=== PATIENT | female | born 1985 | race Caucasian/White ===

== ENCOUNTER 2016-05-27 19:41 | Emergency (ER) | payer MEDICAID ==
[2016-05-27] MEDS ORDERED: AUGMENTIN 875 MG TAB As Ordered ONE (20:54)
[2016-05-27] MEDS ORDERED: METOCLOPRAMIDE INJ 10MG/2ML VIAL (J2765) As Ordered ONE (20:54)
[2016-05-27] MEDS ORDERED: KETOROLAC 30 MG/ML VIAL (J1885) As Ordered ONE (20:55)
[2016-05-27] MEDS ORDERED: diphenhydrAMINE INJ 50MG/ML VIAL (J1200) As Ordered ONE (20:55)
[2016-05-27] MEDS ORDERED: ONDANSETRON 4 MG ORAL DISINTEGRATING TAB (S0181) As Ordered ONE (22:26)
--- NOTE | 2016-05-27 22:37 | EDDOCDS ---
Physician Documentation [facility] Name: Hortencia Trevino Age: 30 yrs Sex: Female : 1985 Arrival Date: 05/27/2016 Time: 19:41 Bed I5 / M5 Private MD: Mikey Sexton A. Disposition: 05/27/16 22:21 Discharged to Home/Self Care. Impression: Headache, Acute maxillary sinusitis. - Condition is Stable. - Discharge Instructions: Sinusitis, Adult. - Prescriptions for Augmentin 875- 125 mg Oral Tablet - take 1 tablet by ORAL route every 12 hours for 10 days; 20 tablet. Fluticasone 50 mcg/actuation Nasal [place], Suspension - inhale 2 spray by INTRANASAL route once daily; 1 bottle. - Medication Reconciliation, Local Pharmacy Hours form. - Follow up: Emergency Department; When: As needed. Follow up: Mikey Sexton; When: Call to arrange an appointment; Reason: Wound/Symptom Recheck, Recheck today's complaints, Worsening of conditions, Continuance of care. - Problem is an ongoing problem. - Symptoms have improved. Historical: - Allergies: Imitrex; Biaxin; SULFA (SULFONAMIDES); decongestants; snapple drinks; - Home Meds: 1. BCP 1 tab once daily 2. albuterol sulfate 90 mcg/actuation Inhl HFAA 2 puffs as needed 3. Tylenol 500mg Oral 1 tab as needed (Last dose: 05/27/2016 04:30) 4. Motrin 800 mg Oral tab as needed (Last dose: 05/27/2016 15:45) - PMHx: Asthma; Migraines; Heart Murmur; - PSHx: Tonsillectomy; Adenoidectomy; Laparoscopy; - Social history: Smoking status: Patient states was never smoker of tobacco. No barriers to communication noted, The patient speaks fluent Gabonese. - Family history: Not pertinent. - : The pt / caregiver states he / she is not on anticoagulants. Home medication list is obtained from the patient. - Exposure Risk Screening:: None identified. 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 10 in. (147.32 cm); Pain 7/10; 22:27 BP 118 / 66; Pulse 91; Resp 18; Temp 98.4; Pulse Ox 100% ; Pain 4/10; ms18 19:42 Body Mass Index 31.35 (68.04 kg, 147.32 cm) sew MDM: 20:45 IV Saline Lock ordered. cc10 20:45 NS 0.9% 1000 ml IV at bolus once ordered. cc10 20:45 ketorolac 30 mg IVP once ordered. cc10 20:45 diphenhydrAMINE 25 mg IVP once ordered. cc10 20:45 Metoclopramide 10 mg IV at 40 mg/hr once over 15 mins ordered. cc10 20:45 Amoxicillin-Clavulanate 875 mg 1 tabs PO once ordered. cc10 20:45 UCG by Nursing ordered. cc10 21:30 [facility] Payment Agreement was scanned into [employer] and attached to record. jp5 21:30 Financial registration complete. jp5 22:21 Ondansetron ODT Oral Disintegrating Tablet 4 mg PO once ordered. cc10 Point of Care Testing: Urine : 21:01 hCG Reading: Negative; Control Reading: Positive; ld5 Ranges: Administered Medications: 21:08 Drug: NS 0.9% 1000 ml [sodium chloride 0.9 % intravenous solution] Route: IV; Rate: ms18 bolus; Site: left antecubital; 21:08 Drug: ketorolac 30 mg [ketorolac 30 mg/mL (1 mL) injection solution (1 mL)] Route: IVP; ms18 Site: left antecubital; 21:08 Drug: Amoxicillin-Clavulanate 1 tabs [amoxicillin 875 mg-potassium clavulanate 125 mg ms18 tablet (1 tabs)] Route: PO; 21:09 Drug: diphenhydrAMINE 25 mg [diphenhydramine 50 mg/mL injection solution (0.5 mL)] ms18 Route: IVP; Site: left antecubital; 21:09 Drug: Metoclopramide 10 mg [metoclopramide 5 mg/mL injection solution] Route: IV; Rate: ms18 40 mg/hr; Infused Over: 15 mins; Site: left antecubital; 22:37 Follow up: IV Status: Completed infusion ms18 Signatures: Veronica Vega RN RN [facility] Jatinder Kelly PA-C PAOdalys cc10 Angelica Spaulding RN RN ms18 Aditi Tovar jp5 The chart was reviewed and I authenticate all verbal orders and agree with the evaluation and treatment provided.Attachments: 21:30 [facility] Payment Agreement jp5 MTDD
--- NOTE | 2016-05-27 22:37 | EDDOCDS ---
Nurse's Notes [facility] Name: Hortencia Trevino Age: 30 yrs Sex: Female : 1985 Arrival Date: 05/27/2016 Time: 19:41 Bed I5 / M5 Private MD: Mikey Sexton A. Diagnosis: Headache;Acute maxillary sinusitis Presentation: 05/27 19:46 Presenting complaint: Patient states: Headache since yesterday morning, hurts to move, mcp lights and loud noises increase headache. This patient has no additional risk factors. Adult Sepsis Screening: The patient does not have new or worsening altered mentation. Patient's respiratory rate is less than 22. Systolic blood pressure is greater than 100. Patient has a qSOFA score of 0- Negative Sepsis Screen. Suicide/Homicide risk assessment- the patient denies having any suicidal and/or homicidal ideations and does not present with any other emotional, behavioral or mental health complaints. Status: Patient is not a career services representative or dependent. Transition of care: patient was not received from another setting of care. 19:46 Acuity: ERIN Level 4 [facility] 19:46 Method Of Arrival: Walkin/Carried/Asstd [facility] Triage Assessment: 19:51 Headache History: This headache is more severe than any previous headaches the patient [facility] has experienced. General: Appears uncomfortable, Behavior is cooperative. Pain: Location: head Pain currently is 8 out of 10 on a pain scale. Pain began 1 day ago Also complains of photophobia, inability to perform activities of daily living. HIV screening NA for this visit Offered previously. Neurological: Level of Consciousness is awake, alert, Oriented to person, place, time, Moves all extremities. Gait is steady, Speech is normal, Reports headache. Respiratory: Airway is patent Respiratory effort is even, unlabored. Derm: Skin is pink, warm & dry. 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 BCP 1 tab once daily 2. albuterol sulfate 90 mcg/actuation Inhl HFAA 2 puffs as needed 3. Tylenol 500mg Oral 1 tab as needed (Last dose: 05/27/2016 04:30) 4. Motrin 800 mg Oral tab as needed (Last dose: 05/27/2016 15:45) - PMHx: Asthma; Migraines; Heart Murmur; - PSHx: Tonsillectomy; Adenoidectomy; Laparoscopy; - Social history: Smoking status: Patient states was never smoker of tobacco. No barriers to communication noted, The patient speaks fluent Luxembourger. - Family history: Not pertinent. - : The pt / caregiver states he / she is not on anticoagulants. Home medication list is obtained from the patient. - Exposure Risk Screening:: None identified. Screenin:01 Screening information is obtained from the patient. Fall risk: No risks identified. ld5 Assistance ADL's: requires no assistance with activities of daily living. Abuse/DV Screen: The patient / caregiver reports he/she is: not in a situation that causes fear, pain or injury. Nutritional screening: No deficits noted. Advance Directives: There is no active DNR order. home support is adequate. Assessment: 21:01 General: Appears in no apparent distress, Behavior is cooperative. Pain: Location: ld5 occipital area and base of the skull Pain currently is 7 out of 10 on a pain scale. Pain does not radiate. Quality of pain is described as pressure, sharp, Pain began 1 day ago Is continuous. Neurological: Level of Consciousness is awake, obeys commands. Respiratory: Airway is patent Respiratory effort is even, unlabored. GI: Abdomen is non- distended Denies nausea, vomiting. 22:27 General: Appears in no apparent distress, comfortable, Behavior is appropriate for age, ms18 cooperative. Pain: Location: occipital area Pain currently is 4 out of 10 on a pain scale. Also complains of no other associated symptoms. Neurological: Level of Consciousness is awake, alert, obeys commands, Oriented to person, place, time. Respiratory: No deficits noted. Derm: Skin is pink, warm & dry. Vital Signs: 19:42 BP 137 / 70; Pulse 94; Resp 16; Temp 97.3(T); Pulse Ox 98% on R/A; Weight 68.04 kg; sew Height 4 ft. 10 in. (147.32 cm); Pain 7/10; 22:27 BP 118 / 66; Pulse 91; Resp 18; Temp 98.4; Pulse Ox 100% ; Pain 4/10; ms18 19:42 Body Mass Index 31.35 (68.04 kg, 147.32 cm) sew Vitals: 19:42 Log In Time: May 27, 2016 at 19:40. sew ED Course: 19:41 Patient visited by Jocelyn Tanner. sew 19:41 Patient moved to Waiting sew 19:42 Mikey Sexton is Private Physician. sew 19:43 Patient visited by Jocelyn Tanner. sew 19:43 Patient moved to Pre RCE sew 19:47 Triage Initiated mcp 19:52 Patient visited by Veronica Vega RN. mcp 20:24 Patient moved to Triage 1 cz 20:36 Jatinder Kelly PA-C is PHCP. cc10 20:36 Kishor Patel DO is Attending Physician. cc10 20:36 Patient visited by Jatinder Kelly PA-C. cc10 20:36 Patient visited by Jatinder Kelly PA-C. cc10 20:45 Patient moved to I5 / M5 jb5 21:01 The patient / caregiver is instructed regarding the plan of care and ED course. Patient ld5 has correct armband on for positive identification. Placed in gown. Bed in low position. Call light in reach. 21:01 Inserted saline lock: 20 gauge in left antecubital area The patient tolerated the ld5 procedure well. 21:02 Patient visited by Jasmin Bartlett,GIORGIO. ld5 21:08 Patient visited by Angelica Spaulding,GIORGIO. ms18 21:30 [facility] Payment Agreement was scanned into [employer] and attached to record. jp5 21:53 Patient visited by Aurea Perry LPN. cp1 22:00 Patient visited by Aurea Perry LPN. cp1 22:15 Patient visited by Aurea Perry LPN. cp1 22:21 Mikey Sexton is Referral Physician. cc10 22:27 Property sent home with patient. :Personal belongings accompany Pt. ms18 22:27 Discontinued IV lock intact, bleeding controlled, pressure dressing applied, No ms18 redness/swelling at site. No procedures done that require assistance. Administered Medications: 21:08 Drug: NS 0.9% 1000 ml [sodium chloride 0.9 % intravenous solution] Route: IV; Rate: ms18 bolus; Site: left antecubital; 21:08 Drug: ketorolac 30 mg [ketorolac 30 mg/mL (1 mL) injection solution (1 mL)] Route: IVP; ms18 Site: left antecubital; 21:08 Drug: Amoxicillin-Clavulanate 1 tabs [amoxicillin 875 mg-potassium clavulanate 125 mg ms18 tablet (1 tabs)] Route: PO; 21:09 Drug: diphenhydrAMINE 25 mg [diphenhydramine 50 mg/mL injection solution (0.5 mL)] ms18 Route: IVP; Site: left antecubital; 21:09 Drug: Metoclopramide 10 mg [metoclopramide 5 mg/mL injection solution] Route: IV; Rate: ms18 40 mg/hr; Infused Over: 15 mins; Site: left antecubital; 22:37 Follow up: IV Status: Completed infusion ms18 Point of Care Testing: Urine : 21:01 hCG Reading: Negative; Control Reading: Positive; ld5 Ranges: Order Results: There are currently no results for this order. Outcome: 22:21 Discharge ordered by Provider. cc10 22:27 Discharge Assessment: Patient awake, alert and oriented x 3. No cognitive and/or ms18 functional deficits noted. Patient verbalized understanding of disposition instructions. patient administered narcotics - no. The following High Risk Discharge criteria are identified: None. Discharged to home ambulatory. Condition: good Condition: stable Condition: improved. Discharge instructions given to patient, Instructed on discharge instructions, follow up and referral plans. medication usage, Demonstrated understanding of instructions, medications, Pt was receptive of discharge instructions/ teaching. Prescriptions given X 2. No special radiology studies were completed. 22:36 Patient left the ED. ms18 Signatures: Veronica Vega RN RN mcp Zecher, Calvin, RN Alma Pierre, SHAREBROKER SHAREBROKER jb5 Aurea Perry,BASKET GRADER BASKET GRADER cp1 Jasmin Bartlett RN RN israel5 Jocelyn Tanner Colin, PA-C PA-C cc10 Angelica Spaulding RN RN ms18 Aditi Tovar jp5 MTDD
--- NOTE | 2016-05-31 10:07 | EDDOCDS ---
Physician Documentation [facility] Name: Hortecnia Trevino Age: 30 yrs Sex: Female : 1985 Arrival Date: 05/27/2016 Time: 19:41 Bed I5 / M5 Private MD: Mikey Sexton A. Disposition: 05/27/16 22:21 Discharged to Home/Self Care. Impression: Headache, Acute maxillary sinusitis. - Condition is Stable. - Discharge Instructions: Sinusitis, Adult. - Prescriptions for Augmentin 875- 125 mg Oral Tablet - take 1 tablet by ORAL route every 12 hours for 10 days; 20 tablet. Fluticasone 50 mcg/actuation Nasal [place], Suspension - inhale 2 spray by INTRANASAL route once daily; 1 bottle. - Medication Reconciliation, Local Pharmacy Hours form. - Follow up: Emergency Department; When: As needed. Follow up: Mikey Sexton; When: Call to arrange an appointment; Reason: Wound/Symptom Recheck, Recheck today's complaints, Worsening of conditions, Continuance of care. - Problem is an ongoing problem. - Symptoms have improved. Historical: - Allergies: Imitrex; Biaxin; SULFA (SULFONAMIDES); decongestants; snapple drinks; - Home Meds: 1. BCP 1 tab once daily 2. albuterol sulfate 90 mcg/actuation Inhl HFAA 2 puffs as needed 3. Tylenol 500mg Oral 1 tab as needed (Last dose: 05/27/2016 04:30) 4. Motrin 800 mg Oral tab as needed (Last dose: 05/27/2016 15:45) - PMHx: Asthma; Migraines; Heart Murmur; - PSHx: Tonsillectomy; Adenoidectomy; Laparoscopy; - Social history: Smoking status: Patient states was never smoker of tobacco. No barriers to communication noted, The patient speaks fluent Sudanese. - Family history: Not pertinent. - : The pt / caregiver states he / she is not on anticoagulants. Home medication list is obtained from the patient. - Exposure Risk Screening:: None identified. 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 10 in. (147.32 cm); Pain 7/10; 22:27 BP 118 / 66; Pulse 91; Resp 18; Temp 98.4; Pulse Ox 100% ; Pain 4/10; ms18 19:42 Body Mass Index 31.35 (68.04 kg, 147.32 cm) sew MDM: 20:45 IV Saline Lock ordered. cc10 20:45 NS 0.9% 1000 ml IV at bolus once ordered. cc10 20:45 ketorolac 30 mg IVP once ordered. cc10 20:45 diphenhydrAMINE 25 mg IVP once ordered. cc10 20:45 Metoclopramide 10 mg IV at 40 mg/hr once over 15 mins ordered. cc10 20:45 Amoxicillin-Clavulanate 875 mg 1 tabs PO once ordered. cc10 20:45 UCG by Nursing ordered. cc10 21:30 [facility] Payment Agreement was scanned into [employer] and attached to record. jp5 21:30 Financial registration complete. jp5 22:21 Ondansetron ODT Oral Disintegrating Tablet 4 mg PO once ordered. cc10 05/28 08:18 T-Sheet-- Draft Copy was scanned into [employer] and attached to record. [facility] Point of Care Testing: Urine : 05/27 21:01 hCG Reading: Negative; Control Reading: Positive; ld5 Ranges: Administered Medications: 21:08 Drug: NS 0.9% 1000 ml [sodium chloride 0.9 % intravenous solution] Route: IV; Rate: ms18 bolus; Site: left antecubital; 22:37 Follow up: IV Status: Completed infusion; IV Intake: 1000ml ms18 21:08 Drug: ketorolac 30 mg [ketorolac 30 mg/mL (1 mL) injection solution (1 mL)] Route: IVP; ms18 Site: left antecubital; 22:37 Follow up: Response: Pain is decreased ms18 21:08 Drug: Amoxicillin-Clavulanate 1 tabs [amoxicillin 875 mg-potassium clavulanate 125 mg ms18 tablet (1 tabs)] Route: PO; 22:38 Follow up: Response: No Adverse Reaction ms18 21:09 Drug: diphenhydrAMINE 25 mg [diphenhydramine 50 mg/mL injection solution (0.5 mL)] ms18 Route: IVP; Site: left antecubital; 22:37 Follow up: Response: No Adverse Reaction ms18 21:09 Drug: Metoclopramide 10 mg [metoclopramide 5 mg/mL injection solution] Route: IV; Rate: ms18 40 mg/hr; Infused Over: 15 mins; Site: left antecubital; 22:37 Follow up: IV Status: Completed infusion ms18 22:38 Drug: Ondansetron ODT 4 mg [ondansetron 4 mg disintegrating tablet (1 tabs)] Route: PO; ms18 22:38 Follow up: Response: Pt left department before re-evaluation is appropriate ms18 Signatures: Veronica Vega RN RN Jatinder Moran PA-C PA-C cc10 Angelica Spaulding RN RN ms18 Aditi Tovar jp5 Jocelyn Yao The chart was reviewed and I authenticate all verbal orders and agree with the evaluation and treatment provided.Attachments: 21:30 [facility] Payment Agreement jp5 05/28 08:18 T-Sheet-- Draft Copy [facility] Chart Complete MTDD
--- NOTE | 2016-05-31 10:07 | EDDOCDS ---
Nurse's Notes [facility] Name: Hortencia Trevino Age: 30 yrs Sex: Female : 1985 Arrival Date: 05/27/2016 Time: 19:41 Bed I5 / M5 Private MD: Mikey Sexton A. Diagnosis: Headache;Acute maxillary sinusitis Presentation: 05/27 19:46 Presenting complaint: Patient states: Headache since yesterday morning, hurts to move, mcp lights and loud noises increase headache. This patient has no additional risk factors. Adult Sepsis Screening: The patient does not have new or worsening altered mentation. Patient's respiratory rate is less than 22. Systolic blood pressure is greater than 100. Patient has a qSOFA score of 0- Negative Sepsis Screen. Suicide/Homicide risk assessment- the patient denies having any suicidal and/or homicidal ideations and does not present with any other emotional, behavioral or mental health complaints. Status: Patient is not a it service continuity supervisor or dependent. Transition of care: patient was not received from another setting of care. 19:46 Acuity: ERIN Level 4 [facility] 19:46 Method Of Arrival: Walkin/Carried/Asstd [facility] Triage Assessment: 19:51 Headache History: This headache is more severe than any previous headaches the patient [facility] has experienced. General: Appears uncomfortable, Behavior is cooperative. Pain: Location: head Pain currently is 8 out of 10 on a pain scale. Pain began 1 day ago Also complains of photophobia, inability to perform activities of daily living. HIV screening NA for this visit Offered previously. Neurological: Level of Consciousness is awake, alert, Oriented to person, place, time, Moves all extremities. Gait is steady, Speech is normal, Reports headache. Respiratory: Airway is patent Respiratory effort is even, unlabored. Derm: Skin is pink, warm & dry. 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 BCP 1 tab once daily 2. albuterol sulfate 90 mcg/actuation Inhl HFAA 2 puffs as needed 3. Tylenol 500mg Oral 1 tab as needed (Last dose: 05/27/2016 04:30) 4. Motrin 800 mg Oral tab as needed (Last dose: 05/27/2016 15:45) - PMHx: Asthma; Migraines; Heart Murmur; - PSHx: Tonsillectomy; Adenoidectomy; Laparoscopy; - Social history: Smoking status: Patient states was never smoker of tobacco. No barriers to communication noted, The patient speaks fluent Lithuanian. - Family history: Not pertinent. - : The pt / caregiver states he / she is not on anticoagulants. Home medication list is obtained from the patient. - Exposure Risk Screening:: None identified. Screenin:01 Screening information is obtained from the patient. Fall risk: No risks identified. ld5 Assistance ADL's: requires no assistance with activities of daily living. Abuse/DV Screen: The patient / caregiver reports he/she is: not in a situation that causes fear, pain or injury. Nutritional screening: No deficits noted. Advance Directives: There is no active DNR order. home support is adequate. Assessment: 21:01 General: Appears in no apparent distress, Behavior is cooperative. Pain: Location: ld5 occipital area and base of the skull Pain currently is 7 out of 10 on a pain scale. Pain does not radiate. Quality of pain is described as pressure, sharp, Pain began 1 day ago Is continuous. Neurological: Level of Consciousness is awake, obeys commands. Respiratory: Airway is patent Respiratory effort is even, unlabored. GI: Abdomen is non- distended Denies nausea, vomiting. 22:27 General: Appears in no apparent distress, comfortable, Behavior is appropriate for age, ms18 cooperative. Pain: Location: occipital area Pain currently is 4 out of 10 on a pain scale. Also complains of no other associated symptoms. Neurological: Level of Consciousness is awake, alert, obeys commands, Oriented to person, place, time. Respiratory: No deficits noted. Derm: Skin is pink, warm & dry. Vital Signs: 19:42 BP 137 / 70; Pulse 94; Resp 16; Temp 97.3(T); Pulse Ox 98% on R/A; Weight 68.04 kg; sew Height 4 ft. 10 in. (147.32 cm); Pain 7/10; 22:27 BP 118 / 66; Pulse 91; Resp 18; Temp 98.4; Pulse Ox 100% ; Pain 4/10; ms18 19:42 Body Mass Index 31.35 (68.04 kg, 147.32 cm) sew Vitals: 19:42 Log In Time: May 27, 2016 at 19:40. sew ED Course: 19:41 Patient visited by Jocelyn Tanner. sew 19:41 Patient moved to Waiting sew 19:42 Mikey Sexton is Private Physician. sew 19:43 Patient visited by Jocelyn Tanner. sew 19:43 Patient moved to Pre RCE sew 19:47 Triage Initiated mcp 19:52 Patient visited by Veronica Vega RN. mcp 20:24 Patient moved to Triage 1 cz 20:36 Jatinder Kelly PA-C is PHCP. cc10 20:36 Kishor Patel DO is Attending Physician. cc10 20:36 Patient visited by Jatinder Kelly PA-C. cc10 20:36 Patient visited by Jatinder Kelly PA-C. cc10 20:45 Patient moved to I5 / M5 jb5 21:01 The patient / caregiver is instructed regarding the plan of care and ED course. Patient ld5 has correct armband on for positive identification. Placed in gown. Bed in low position. Call light in reach. 21:01 Inserted saline lock: 20 gauge in left antecubital area The patient tolerated the ld5 procedure well. 21:02 Patient visited by Jasmin Bartlett,GIORGIO. ld5 21:08 Patient visited by Angelica Spaulding,GIORGIO. ms18 21:30 [facility] Payment Agreement was scanned into [employer] and attached to record. jp5 21:53 Patient visited by uArea Perry LPN. cp1 22:00 Patient visited by Aurea Perry LPN. cp1 22:15 Patient visited by Aurea Perry LPN. cp1 22:21 Mikey Sexton is Referral Physician. cc10 22:27 Property sent home with patient. :Personal belongings accompany Pt. ms18 22:27 Discontinued IV lock intact, bleeding controlled, pressure dressing applied, No ms18 redness/swelling at site. No procedures done that require assistance. 05/28 08:18 T-Sheet-- Draft Copy was scanned into [employer] and attached to record. seh Administered Medications: 05/27 21:08 Drug: NS 0.9% 1000 ml [sodium chloride 0.9 % intravenous solution] Route: IV; Rate: ms18 bolus; Site: left antecubital; 22:37 Follow up: IV Status: Completed infusion; IV Intake: 1000ml ms18 21:08 Drug: ketorolac 30 mg [ketorolac 30 mg/mL (1 mL) injection solution (1 mL)] Route: IVP; ms18 Site: left antecubital; 22:37 Follow up: Response: Pain is decreased ms18 21:08 Drug: Amoxicillin-Clavulanate 1 tabs [amoxicillin 875 mg-potassium clavulanate 125 mg ms18 tablet (1 tabs)] Route: PO; 22:38 Follow up: Response: No Adverse Reaction ms18 21:09 Drug: diphenhydrAMINE 25 mg [diphenhydramine 50 mg/mL injection solution (0.5 mL)] ms18 Route: IVP; Site: left antecubital; 22:37 Follow up: Response: No Adverse Reaction ms18 21:09 Drug: Metoclopramide 10 mg [metoclopramide 5 mg/mL injection solution] Route: IV; Rate: ms18 40 mg/hr; Infused Over: 15 mins; Site: left antecubital; 22:37 Follow up: IV Status: Completed infusion ms18 22:38 Drug: Ondansetron ODT 4 mg [ondansetron 4 mg disintegrating tablet (1 tabs)] Route: PO; ms18 22:38 Follow up: Response: Pt left department before re-evaluation is appropriate ms18 Point of Care Testing: Urine : 21:01 hCG Reading: Negative; Control Reading: Positive; ld5 Ranges: Intake: 22:37 IV: 1000.00ml; Total: 1000.00ml. ms18 Order Results: There are currently no results for this order. Outcome: 22:21 Discharge ordered by Provider. cc10 22:27 Discharge Assessment: Patient awake, alert and oriented x 3. No cognitive and/or ms18 functional deficits noted. Patient verbalized understanding of disposition instructions. patient administered narcotics - no. The following High Risk Discharge criteria are identified: None. Discharged to home ambulatory. Condition: good Condition: stable Condition: improved. Discharge instructions given to patient, Instructed on discharge instructions, follow up and referral plans. medication usage, Demonstrated understanding of instructions, medications, Pt was receptive of discharge instructions/ teaching. Prescriptions given X 2. No special radiology studies were completed. 22:36 Patient left the ED. ms18 Signatures: Veronica Vega, RN RN Lj Travis, GIORGIO RN Alma Lopez, JUAREZ ROCKET ENGINE TESTER jb5 Aurea Perry LPN LPN cp1 Jasmin Bartlett RN RN ld5 Jocelyn Tanner Colin, PA-C PA-C cc10 Angelica Spaulding RN RN ms18 Aditi Tovar jp5 Jocelyn Yao Chart Complete MTDD
--- NOTE | 2016-05-31 10:07 | EDDOCDS ---
Physician Documentation [facility] Name: Hortencia Trevino Age: 30 yrs Sex: Female : 1985 Arrival Date: 05/27/2016 Time: 19:41 Bed I5 / M5 Private MD: Mikey Sexton A. Disposition: 05/27/16 22:21 Discharged to Home/Self Care. Impression: Headache, Acute maxillary sinusitis. - Condition is Stable. - Discharge Instructions: Sinusitis, Adult. - Prescriptions for Augmentin 875- 125 mg Oral Tablet - take 1 tablet by ORAL route every 12 hours for 10 days; 20 tablet. Fluticasone 50 mcg/actuation Nasal [place], Suspension - inhale 2 spray by INTRANASAL route once daily; 1 bottle. - Medication Reconciliation, Local Pharmacy Hours form. - Follow up: Emergency Department; When: As needed. Follow up: Mikey Sexton; When: Call to arrange an appointment; Reason: Wound/Symptom Recheck, Recheck today's complaints, Worsening of conditions, Continuance of care. - Problem is an ongoing problem. - Symptoms have improved. Historical: - Allergies: Imitrex; Biaxin; SULFA (SULFONAMIDES); decongestants; snapple drinks; - Home Meds: 1. BCP 1 tab once daily 2. albuterol sulfate 90 mcg/actuation Inhl HFAA 2 puffs as needed 3. Tylenol 500mg Oral 1 tab as needed (Last dose: 05/27/2016 04:30) 4. Motrin 800 mg Oral tab as needed (Last dose: 05/27/2016 15:45) - PMHx: Asthma; Migraines; Heart Murmur; - PSHx: Tonsillectomy; Adenoidectomy; Laparoscopy; - Social history: Smoking status: Patient states was never smoker of tobacco. No barriers to communication noted, The patient speaks fluent German. - Family history: Not pertinent. - : The pt / caregiver states he / she is not on anticoagulants. Home medication list is obtained from the patient. - Exposure Risk Screening:: None identified. 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 10 in. (147.32 cm); Pain 7/10; 22:27 BP 118 / 66; Pulse 91; Resp 18; Temp 98.4; Pulse Ox 100% ; Pain 4/10; ms18 19:42 Body Mass Index 31.35 (68.04 kg, 147.32 cm) sew MDM: 20:45 IV Saline Lock ordered. cc10 20:45 NS 0.9% 1000 ml IV at bolus once ordered. cc10 20:45 ketorolac 30 mg IVP once ordered. cc10 20:45 diphenhydrAMINE 25 mg IVP once ordered. cc10 20:45 Metoclopramide 10 mg IV at 40 mg/hr once over 15 mins ordered. cc10 20:45 Amoxicillin-Clavulanate 875 mg 1 tabs PO once ordered. cc10 20:45 UCG by Nursing ordered. cc10 21:30 [facility] Payment Agreement was scanned into [employer] and attached to record. jp5 21:30 Financial registration complete. jp5 22:21 Ondansetron ODT Oral Disintegrating Tablet 4 mg PO once ordered. cc10 05/28 08:18 T-Sheet-- Draft Copy was scanned into [employer] and attached to record. [facility] Point of Care Testing: Urine : 05/27 21:01 hCG Reading: Negative; Control Reading: Positive; ld5 Ranges: Administered Medications: 21:08 Drug: NS 0.9% 1000 ml [sodium chloride 0.9 % intravenous solution] Route: IV; Rate: ms18 bolus; Site: left antecubital; 22:37 Follow up: IV Status: Completed infusion; IV Intake: 1000ml ms18 21:08 Drug: ketorolac 30 mg [ketorolac 30 mg/mL (1 mL) injection solution (1 mL)] Route: IVP; ms18 Site: left antecubital; 22:37 Follow up: Response: Pain is decreased ms18 21:08 Drug: Amoxicillin-Clavulanate 1 tabs [amoxicillin 875 mg-potassium clavulanate 125 mg ms18 tablet (1 tabs)] Route: PO; 22:38 Follow up: Response: No Adverse Reaction ms18 21:09 Drug: diphenhydrAMINE 25 mg [diphenhydramine 50 mg/mL injection solution (0.5 mL)] ms18 Route: IVP; Site: left antecubital; 22:37 Follow up: Response: No Adverse Reaction ms18 21:09 Drug: Metoclopramide 10 mg [metoclopramide 5 mg/mL injection solution] Route: IV; Rate: ms18 40 mg/hr; Infused Over: 15 mins; Site: left antecubital; 22:37 Follow up: IV Status: Completed infusion ms18 22:38 Drug: Ondansetron ODT 4 mg [ondansetron 4 mg disintegrating tablet (1 tabs)] Route: PO; ms18 22:38 Follow up: Response: Pt left department before re-evaluation is appropriate ms18 Signatures: Veronica Vega RN RN Jatinder Moran PA-C PA-C cc10 Angelica Spaulding RN RN ms18 Aditi Tovar jp5 Jocelyn Yao The chart was reviewed and I authenticate all verbal orders and agree with the evaluation and treatment provided.Attachments: 21:30 [facility] Payment Agreement jp5 05/28 08:18 T-Sheet-- Draft Copy [facility] Chart Complete MTDD
== END 2016-05-27 22:36 | disposition home or self-care (01) ==
LOC: M ED 19:41
DX: G43.909 Migraine, unspecified, not intractable, without status migrainosus (principal); J01.00 Acute maxillary sinusitis, unspecified; J45.909 Unspecified asthma, uncomplicated; R01.1 Cardiac murmur, unspecified; Z79.3 Long term (current) use of hormonal contraceptives; Z79.899 Other long term (current) drug therapy; Z88.1 Allergy status to other antibiotic agents; Z88.8 Allergy status to other drugs, medicaments and biological substances; Z88.2 Allergy status to sulfonamides; Z91.018 Allergy to other foods
CPT/HCPCS: 81025; 96365; 96375; 99283; J1200; J1885; J2765

== ENCOUNTER → 2017-01-02 | Outpatient (CLI) | payer OTHER ==
[2017-01-02 17:03] LABS: MEAN CORPUSCULAR HEMOGLOBIN 27.3 pg (27.0-33.0); MEAN CORPUSCULAR HGB CONC 32.7 g/dl (32.0-36.5); MEAN CORPUSCULAR VOLUME 83.5 fl (80.0-96.0); RED CELL DISTRIBUTION WIDTH 13.4 % (11.5-14.5); WHITE BLOOD COUNT 7.2 K/mm3 (4.0-10.0)
[2017-01-02 17:25] LABS: ALBUMIN 3.5 GM/DL (3.2-5.2); ALBUMIN/GLOBULIN RATIO 1.06 (1.00-1.93); ALKALINE PHOSPHATASE 94 U/L (45-117); ALT/SGPT 27 U/L (12-78); ANION GAP 9 MEQ/L (8-16); AST/SGOT 22 U/L (15-37); BILIRUBIN,TOTAL 0.3 MG/DL (0.2-1.0); BLOOD UREA NITROGEN 14 MG/DL (7-18); CALCIUM LEVEL 8.7 MG/DL (8.5-10.1); CARBON DIOXIDE LEVEL 24 MEQ/L (21-32); CHLORIDE LEVEL 108 MEQ/L (98-107); CREATININE FOR GFR 0.68 MG/DL (0.55-1.02); GLOMERULAR FILTRATION RATE > 60.0 (>60); GLUCOSE, FASTING 101 MG/DL (70-105); POTASSIUM SERUM 3.6 MEQ/L (3.5-5.1); SODIUM LEVEL 141 MEQ/L (136-145); TOTAL PROTEIN 6.8 GM/DL (6.4-8.2)
== END ==
LOC: M LAB 16:05
PROVIDERS: ATTEND Family Medicine
DX: Z51.81 Encounter for therapeutic drug level monitoring (principal); Z79.899 Other long term (current) drug therapy

== ENCOUNTER → 2017-05-01 | Outpatient (REF) ==
[2017-05-01 12:23] LABS: BASO # 0.1 10^3/uL (0.0-0.2); BASO % 0.7 % (0.0-1.0); EOS % 0.3 % (0.0-3.0); IMMATURE GRANULOCYTE % 0.1 % (0-0); LYMPH # 2.4 10^3/uL (1.5-4.5); LYMPH % 32.4 % (24.0-44.0); MEAN CORPUSCULAR HEMOGLOBIN 26.9 pg (27.0-33.0); MEAN CORPUSCULAR HGB CONC 32.2 g/dl (32.0-36.5); MEAN CORPUSCULAR VOLUME 83.5 fl (80.0-96.0); MONO # 0.7 10^3/uL (0.0-0.8); MONO % 9.2 % (0.0-5.0); NEUTROPHILS # 4.3 10^3/uL (1.8-7.7); NEUTROPHILS % 57.3 % (36.0-66.0); PLATELET COUNT, AUTOMATED 318 10^3/uL (150-450); RED CELL DISTRIBUTION WIDTH 13.5 % (11.5-14.5); WHITE BLOOD COUNT 7.4 10^3/uL (4.0-10.0)
[2017-05-01 13:27] LABS: ALBUMIN 4.2 GM/DL (3.2-5.2); ALKALINE PHOSPHATASE 80 U/L (45-117); ALT/SGPT 24 U/L (12-78); ANION GAP 10 MEQ/L (8-16); AST/SGOT 12 U/L (7-37); BILIRUBIN,TOTAL 0.3 MG/DL (0.2-1.0); BLOOD UREA NITROGEN 10 MG/DL (7-18); CALCIUM LEVEL 9.2 MG/DL (8.5-10.1); CARBON DIOXIDE LEVEL 25 MEQ/L (21-32); CHLORIDE LEVEL 105 MEQ/L (98-107); CREATININE FOR GFR 0.67 MG/DL (0.55-1.02); GLOMERULAR FILTRATION RATE > 60.0 (>60); GLUCOSE, FASTING 85 MG/DL (70-105); POTASSIUM SERUM 3.8 MEQ/L (3.5-5.1); SODIUM LEVEL 140 MEQ/L (136-145); TOTAL PROTEIN 7.7 GM/DL (6.4-8.2)
== END ==
LOC: M LAB 11:43
PROVIDERS: ATTEND Nurse Practitioner Adult Health
DX: Z02.9 Encounter for administrative examinations, unspecified (principal)

== ENCOUNTER → 2017-06-07 | Outpatient (CLI) | payer OTHER ==
[2017-06-07 18:24] LABS: FREE T4 0.94 NG/DL (0.76-1.46)
== END ==
LOC: M LAB 17:20
DX: E07.9 Disorder of thyroid, unspecified (principal)
CPT/HCPCS: 84443

== ENCOUNTER → 2017-08-15 | Outpatient (REF) | payer BC, OTHER ==
[2017-08-15 13:41] LABS: HCG, SERUM QUANTITATIVE < 1.0 MIU/ML
== END ==
LOC: M LAB REF 12:55
DX: Z32.02 Encounter for pregnancy test, result negative (principal)
CPT/HCPCS: 84702

== ENCOUNTER → 2017-09-05 | Outpatient (REF) | payer BC, OTHER ==
[2017-09-05 17:25] LABS: MEAN CORPUSCULAR HEMOGLOBIN 26.5 pg (27.0-33.0); MEAN CORPUSCULAR HGB CONC 31.7 g/dl (32.0-36.5); MEAN CORPUSCULAR VOLUME 83.7 fl (80.0-96.0); PLATELET COUNT, AUTOMATED 364 10^3/uL (150-450); RED CELL DISTRIBUTION WIDTH 13.6 % (11.5-14.5); WHITE BLOOD COUNT 7.8 10^3/uL (4.0-10.0)
[2017-09-05 23:06] LABS: HCG, SERUM QUANTITATIVE 117 MIU/ML
== END ==
LOC: M LAB REF 16:22
DX: O36.80X0 Pregnancy with inconclusive fetal viability, not applicable or unspecified (principal)
CPT/HCPCS: 86762

== ENCOUNTER → 2017-09-22 | Outpatient (REF) | payer BC, OTHER ==
[2017-09-22 16:41] LABS: HCG, SERUM QUANTITATIVE 2924 MIU/ML
== END ==
LOC: M LAB REF 15:26
DX: O36.80X0 Pregnancy with inconclusive fetal viability, not applicable or unspecified (principal); Z3A.00 Weeks of gestation of pregnancy not specified
CPT/HCPCS: 84702

== ENCOUNTER → 2017-10-02 | Outpatient (CLI) | payer BC, OTHER ==
[2017-10-02 13:43] LABS: HCG, SERUM QUANTITATIVE 1414 MIU/ML
== END ==
LOC: M SMT 11:03
DX: O36.80X0 Pregnancy with inconclusive fetal viability, not applicable or unspecified (principal); Z3A.00 Weeks of gestation of pregnancy not specified
CPT/HCPCS: 84702

== ENCOUNTER 2017-10-05 14:04 | Emergency (ER) | payer BC, OTHER ==
[2017-10-05] MEDS: NS 1,000 ML IV (15:15)
[2017-10-05 15:48] LABS: KETONE, URINE AUTO RFX NEGATIVE (NEGATIVE); LEUKOCYTE ESTERASE UR AUTO RFX NEGATIVE (NEGATIVE); MUCUS, URINE RFX SMALL (NEGATIVE); NITRITE, URINE AUTO RFX NEGATIVE (NEGATIVE); RBC, URINE AUTO RFX 2 /HPF (0-3); SPECIFIC GRAVITY UR AUTO RFX 1.003 (1.002-1.035); SQUAM EPITHELIAL CELL UR AURFX 1 /HPF (0-6); WBC, URINE AUTO RFX 0 /HPF (0-3)
[2017-10-05 16:10] LABS: BASO % 0.5 % (0.0-1.0); EOS % 0.2 % (0.0-3.0); HEMATOCRIT 40.5 % (36.0-47.0); HEMOGLOBIN 13.1 g/dl (12.0-15.5); IMMATURE GRANULOCYTE % 0.1 % (0-3.0); LYMPH # 2.5 10^3/uL (1.5-4.5); LYMPH % 30.2 % (24.0-44.0); MEAN CORPUSCULAR HGB CONC 32.3 g/dl (32.0-36.5); MEAN CORPUSCULAR VOLUME 83.3 fl (80.0-96.0); MONO # 0.6 10^3/uL (0.0-0.8); MONO % 7.7 % (0.0-5.0); NEUTROPHILS % 61.3 % (36.0-66.0); PLATELET COUNT, AUTOMATED 364 10^3/uL (150-450); RED BLOOD COUNT 4.86 10^6/uL (4.00-5.40); RED CELL DISTRIBUTION WIDTH 13.8 % (11.5-14.5); WHITE BLOOD COUNT 8.2 10^3/uL (4.0-10.0)
[2017-10-05 16:30] LABS: ANION GAP 7 MEQ/L (8-16); BLOOD UREA NITROGEN 6 MG/DL (7-18); CALCIUM LEVEL 9.4 MG/DL (8.5-10.1); CARBON DIOXIDE LEVEL 27 MEQ/L (21-32); CHLORIDE LEVEL 108 MEQ/L (98-107); CPK CREATINE PHOSPHOKINASE 78 U/L (26-192); CREATININE FOR GFR 0.64 MG/DL (0.55-1.30); GLOMERULAR FILTRATION RATE > 60.0 (>60); GLUCOSE, FASTING 92 MG/DL (70-100); POTASSIUM SERUM 3.6 MEQ/L (3.5-5.1); SODIUM LEVEL 142 MEQ/L (136-145); TROPONIN I < 0.02 NG/ML (< 0.10)
[2017-10-05 16:32] LABS: CK-MB VALUE MASS < 1.0 NG/ML (<3.6); HCG, SERUM QUANTITATIVE 235 MIU/ML; MB/CK RELATIVE INDEX 1.28 (< OR =4)
[2017-10-05] MEDS: MECLIZINE 25 MG TABLET PO (16:51)
== END 2017-10-05 17:47 | disposition home or self-care (01) ==
LOC: M ED 14:04
DX: Z87.59 Personal history of other complications of pregnancy, childbirth and the puerperium (principal); R42 Dizziness and giddiness; J45.909 Unspecified asthma, uncomplicated; N88.8 Other specified noninflammatory disorders of cervix uteri; Z79.899 Other long term (current) drug therapy; Z88.1 Allergy status to other antibiotic agents; Z88.2 Allergy status to sulfonamides; Z88.8 Allergy status to other drugs, medicaments and biological substances; Z91.018 Allergy to other foods
CPT/HCPCS: 76856

== ENCOUNTER → 2017-10-05 | Outpatient (REF) | payer BC, OTHER | LOC: M LAB REF 18:13 | DX: O03.4 Incomplete spontaneous abortion without complication (principal) | CPT/HCPCS: 88305 ==

== ENCOUNTER → 2017-10-09 | Outpatient (CLI) | payer BC, OTHER ==
[2017-10-09 14:25] LABS: HCG, SERUM QUANTITATIVE 30 MIU/ML
== END ==
LOC: M SMT 12:17
DX: O20.0 Threatened abortion (principal)

== ENCOUNTER → 2017-10-17 | Outpatient (CLI) | payer BC, OTHER ==
[2017-10-17 13:36] LABS: HCG, SERUM QUANTITATIVE 2 MIU/ML
== END ==
LOC: M SMT 10:14
DX: O03.4 Incomplete spontaneous abortion without complication (principal)
CPT/HCPCS: 84702

== ENCOUNTER → 2017-11-26 | Outpatient (CLI) | payer BC, OTHER | LOC: M WUC 15:45 | DX: M25.531 Pain in right wrist (principal) | CPT/HCPCS: 73110 ==

== ENCOUNTER 2017-12-07 12:28 | Emergency (ER) | payer BC, OTHER ==
[2017-12-07 13:14] LABS: KETONE, URINE AUTO RFX NEGATIVE (NEGATIVE); LEUKOCYTE ESTERASE UR AUTO RFX NEGATIVE (NEGATIVE); NITRITE, URINE AUTO RFX NEGATIVE (NEGATIVE); RBC, URINE AUTO RFX 3 /HPF (0-3); SPECIFIC GRAVITY UR AUTO RFX 1.005 (1.002-1.035); SQUAM EPITHELIAL CELL UR AURFX 0 /HPF (0-6); WBC, URINE AUTO RFX 1 /HPF (0-3)
[2017-12-07 14:19] LABS: HEMATOCRIT 37.3 % (36.0-47.0); HEMOGLOBIN 12.1 g/dl (12.0-15.5); MEAN CORPUSCULAR HGB CONC 32.4 g/dl (32.0-36.5); MEAN CORPUSCULAR VOLUME 83.3 fl (80.0-96.0); PLATELET COUNT, AUTOMATED 301 10^3/uL (150-450); RED BLOOD COUNT 4.48 10^6/uL (4.00-5.40); RED CELL DISTRIBUTION WIDTH 13.6 % (11.5-14.5); WHITE BLOOD COUNT 6.6 10^3/uL (4.0-10.0)
[2017-12-07 15:12] LABS: HCG, SERUM QUANTITATIVE 17733 MIU/ML
== END 2017-12-07 16:55 | disposition home or self-care (01) ==
LOC: M ED 12:28
DX: O20.0 Threatened abortion (principal); R82.71 Bacteriuria; Z3A.01 Less than 8 weeks gestation of pregnancy; Z88.1 Allergy status to other antibiotic agents; Z88.2 Allergy status to sulfonamides; Z88.8 Allergy status to other drugs, medicaments and biological substances; Z91.018 Allergy to other foods
CPT/HCPCS: 76801

== ENCOUNTER → 2017-12-09 | Outpatient (CLI) | payer BC, OTHER ==
[2017-12-09 13:56] LABS: HCG, SERUM QUANTITATIVE 23690 MIU/ML
== END ==
LOC: M LAB 13:01
DX: Z34.80 Encounter for supervision of other normal pregnancy, unspecified trimester (principal); Z3A.00 Weeks of gestation of pregnancy not specified
CPT/HCPCS: 84702

== ENCOUNTER → 2017-12-26 | Outpatient (CLI) | payer BC, OTHER ==
[2017-12-26 17:36] LABS: BASO # 0.1 10^3/uL (0.0-0.2); BASO % 0.8 % (0.0-1.0); EOS # 0.1 10^3/uL (0.0-0.50); EOS % 0.8 % (0.0-3.0); HEMATOCRIT 34.6 % (36.0-47.0); IMMATURE GRANULOCYTE % 0.9 % (0-3.0); LYMPH # 2.3 10^3/uL (1.5-4.5); MEAN CORPUSCULAR HEMOGLOBIN 26.9 pg (27.0-33.0); MEAN CORPUSCULAR HGB CONC 31.8 g/dl (32.0-36.5); MEAN CORPUSCULAR VOLUME 84.6 fl (80.0-96.0); MONO # 0.7 10^3/uL (0.0-0.8); MONO % 8.6 % (0.0-5.0); NEUTROPHILS # 5.2 10^3/uL (1.8-7.7); NEUTROPHILS % 61.9 % (36.0-66.0); PLATELET COUNT, AUTOMATED 430 10^3/uL (150-450); RED BLOOD COUNT 4.09 10^6/uL (4.00-5.40); RED CELL DISTRIBUTION WIDTH 13.2 % (11.5-14.5); WHITE BLOOD COUNT 8.5 10^3/uL (4.0-10.0)
[2017-12-26 22:37] LABS: CHLAMYDIA DNA AMPLIFICATION NEGATIVE (NEGATIVE); GC DNA AMPLIFICATION NEGATIVE (NEGATIVE)
[2017-12-27 08:54] LABS: RUBELLA IgG QUALITATIVE IMMUNE (IMMUNE)
[2017-12-27 09:01] LABS: HBsAg Prenatal NEGATIVE (NEGATIVE)
[2017-12-27 09:22] LABS: HEPATITIS C VIRUS ABY INDEX 0.1 INDEX (<0.8)
[2017-12-27 09:23] LABS: HIV 1&2 SCREEN CENTAUR NEGATIVE (NEGATIVE)
== END ==
LOC: M SMT 15:52
DX: Z34.81 Encounter for supervision of other normal pregnancy, first trimester (principal); Z3A.08 8 weeks gestation of pregnancy
CPT/HCPCS: 86762

== ENCOUNTER → 2018-01-15 | Outpatient (REF) | payer BC, OTHER ==
[2018-01-15 19:56] LABS: ALBUMIN 3.4 GM/DL (3.2-5.2); ALBUMIN/GLOBULIN RATIO 0.97 (1.00-1.93); ALKALINE PHOSPHATASE 58 U/L (45-117); ALT/SGPT 15 U/L (12-78); ANION GAP 10 MEQ/L (8-16); AST/SGOT 9 U/L (7-37); BILIRUBIN,TOTAL 0.2 MG/DL (0.2-1.0); BLOOD UREA NITROGEN 6 MG/DL (7-18); CARBON DIOXIDE LEVEL 26 MEQ/L (21-32); CHLORIDE LEVEL 104 MEQ/L (98-107); CREATININE FOR GFR 0.55 MG/DL (0.55-1.30); GLOMERULAR FILTRATION RATE > 60.0 (>60); GLUCOSE, FASTING 117 MG/DL (70-100); POTASSIUM SERUM 3.6 MEQ/L (3.5-5.1); SODIUM LEVEL 140 MEQ/L (136-145); TOTAL PROTEIN 6.9 GM/DL (6.4-8.2)
[2018-01-15 20:09] LABS: BASO % 0.6 % (0.0-1.0); EOS % 0.6 % (0.0-3.0); HEMATOCRIT 34.6 % (36.0-47.0); HEMOGLOBIN 11.1 g/dl (12.0-15.5); IMMATURE GRANULOCYTE % 0.1 % (0-3.0); LYMPH # 2.2 10^3/uL (1.5-4.5); LYMPH % 33.2 % (24.0-44.0); MEAN CORPUSCULAR HEMOGLOBIN 27.1 pg (27.0-33.0); MEAN CORPUSCULAR HGB CONC 32.1 g/dl (32.0-36.5); MEAN CORPUSCULAR VOLUME 84.6 fl (80.0-96.0); MONO # 0.6 10^3/uL (0.0-0.8); MONO % 8.1 % (0.0-5.0); NEUTROPHILS # 3.9 10^3/uL (1.8-7.7); NEUTROPHILS % 57.4 % (36.0-66.0); PLATELET COUNT, AUTOMATED 317 10^3/uL (150-450); RED BLOOD COUNT 4.09 10^6/uL (4.00-5.40); RED CELL DISTRIBUTION WIDTH 14.2 % (11.5-14.5); WHITE BLOOD COUNT 6.8 10^3/uL (4.0-10.0)
== END ==
LOC: M LABDRWAD 19:14
DX: R00.2 Palpitations (principal); R10.11 Right upper quadrant pain
CPT/HCPCS: 84443

== ENCOUNTER → 2018-03-01 | Outpatient (CLI) | payer OTHER | LOC: M RAD 16:12 | DX: Z34.82 Encounter for supervision of other normal pregnancy, second trimester (principal) | CPT/HCPCS: 76811 ==

== ENCOUNTER → 2018-03-29 | Outpatient (CLI) | payer OTHER | LOC: M RAD 16:36 | DX: Z34.82 Encounter for supervision of other normal pregnancy, second trimester (principal); Z36.89 Encounter for other specified antenatal screening; Z3A.22 22 weeks gestation of pregnancy | CPT/HCPCS: 76816 ==

== ENCOUNTER → 2018-04-30 | Outpatient (CLI) | payer OTHER ==
[2018-04-30 20:10] LABS: HEMATOCRIT 33.9 % (36.0-47.0); HEMOGLOBIN 10.5 g/dl (12.0-15.5); MEAN CORPUSCULAR HEMOGLOBIN 27.1 pg (27.0-33.0); MEAN CORPUSCULAR VOLUME 87.4 fl (80.0-96.0); PLATELET COUNT, AUTOMATED 308 10^3/uL (150-450); RED BLOOD COUNT 3.88 10^6/uL (4.00-5.40); RED CELL DISTRIBUTION WIDTH 14.6 % (11.5-14.5); WHITE BLOOD COUNT 9.9 10^3/uL (4.0-10.0)
[2018-05-01 10:43] LABS: GLUCOSE CHALLENGE TEST 1 HOUR 99 MG/DL (LESS THAN 140)
== END ==
LOC: M LRY 14:35
DX: Z36.89 Encounter for other specified antenatal screening (principal)
CPT/HCPCS: 82950

== ENCOUNTER 2018-06-06 16:37 | Emergency (ER) | payer OTHER ==
[~2018-06-06] VITALS: Ht 147.3 cm; Wt 72.7 kg
[~2018-06-06 16:37] MED LIST: ACET500T15 PO; MACR100C43 PO; MECL-68 PO; PRENTAB55 PO
[2018-06-06] MEDS ORDERED: PROAAER10 INH (16:42)
[2018-06-06 17:32] LABS: BASO % 0.3 % (0.0-1.0); EOS % 0.4 % (0.0-3.0); HEMATOCRIT 34.1 % (36.0-47.0); HEMOGLOBIN 11.3 g/dl (12.0-15.5); LYMPH # 2.6 10^3/uL (1.5-4.5); LYMPH % 25.6 % (24.0-44.0); MEAN CORPUSCULAR HEMOGLOBIN 28.1 pg (27.0-33.0); MEAN CORPUSCULAR HGB CONC 33.1 g/dl (32.0-36.5); MEAN CORPUSCULAR VOLUME 84.8 fl (80.0-96.0); MONO % 9.7 % (0.0-5.0); NEUTROPHILS # 6.4 10^3/uL (1.8-7.7); NEUTROPHILS % 62.7 % (36.0-66.0); PLATELET COUNT, AUTOMATED 266 10^3/uL (150-450); RED BLOOD COUNT 4.02 10^6/uL (4.00-5.40); WHITE BLOOD COUNT 10.2 10^3/uL (4.0-10.0)
[2018-06-06 18:03] LABS: AMPHETAMINES LEVEL URINE NEGATIVE (NEGATIVE); BARBITURATES URINE NEGATIVE (NEGATIVE); BENZODIAZEPINES URINE NEGATIVE (NEGATIVE); CANNABINOIDS URINE NEGATIVE (NEGATIVE); COCAINE METABOLITE URINE NEGATIVE (NEGATIVE); METHADONE URINE NEGATIVE (NEGATIVE); OPIATES URINE NEGATIVE (NEGATIVE); PHENCYCLIDINE URINE NEGATIVE (NEGATIVE)
[2018-06-06 18:14] LABS: ALBUMIN 2.7 GM/DL (3.2-5.2); ALT/SGPT 12 U/L (12-78); BILIRUBIN,TOTAL 0.2 MG/DL (0.2-1.0); BLOOD UREA NITROGEN 9 MG/DL (7-18); CALCIUM LEVEL 8.6 MG/DL (8.5-10.1); CARBON DIOXIDE LEVEL 23 MEQ/L (21-32); CHLORIDE LEVEL 104 MEQ/L (98-107); CREATININE FOR GFR 0.51 MG/DL (0.55-1.30); FREE THYROXINE INDEX 3.4 % (1.3-4.8); GLOMERULAR FILTRATION RATE > 60.0 (>60); GLUCOSE, FASTING 84 MG/DL (70-100); POTASSIUM SERUM 3.7 MEQ/L (3.5-5.1); SODIUM LEVEL 141 MEQ/L (136-145); T UPTAKE 22 % (30-39); THYROXINE (T4) 15.6 UG/DL (4.5-12.0); TOTAL PROTEIN 6.2 GM/DL (6.4-8.2)
[2018-06-06] MEDS ORDERED: NS 500 ML IV ONE (18:15)
[2018-06-06 19:30] VITALS: BP 100/65
--- NOTE | 2018-06-07 08:00 | ECGEPIP ---
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
== END 2018-06-06 19:45 | disposition home or self-care (01) ==
LOC: M ED 16:37
DX: R00.2 Palpitations (principal)

== ENCOUNTER → 2018-07-05 | Outpatient (REF) | payer OTHER ==
[~2018-07-05] MED LIST changes: +PROAAER10 INH
== END ==
LOC: M LAB REF 13:11
PROVIDERS: ATTEND Obstetrics & Gynecology
DX: Z34.83 Encounter for supervision of other normal pregnancy, third trimester (principal)

== ENCOUNTER 2018-07-28 07:27 | Inpatient (IN) | payer OTHER ==
[2018-07-28] VITALS (13 sets, daily range): BP systolic 91–104; BP diastolic 51–75
[~2018-07-28] VITALS: Ht 147.3 cm; Wt 72.6 kg
[2018-07-28] MEDS: miSOPROStol 50 MCG 1/2 TAB (S0191) SL SCH ×3 (09:12→18:42)
[2018-07-28 09:37] LABS: HEMATOCRIT 35.7 % (36.0-47.0); HEMOGLOBIN 11.4 g/dl (12.0-15.5); MEAN CORPUSCULAR HEMOGLOBIN 27.7 pg (27.0-33.0); MEAN CORPUSCULAR HGB CONC 31.9 g/dl (32.0-36.5); MEAN CORPUSCULAR VOLUME 86.7 fl (80.0-96.0); PLATELET COUNT, AUTOMATED 250 10^3/uL (150-450); RED BLOOD COUNT 4.12 10^6/uL (4.00-5.40); WHITE BLOOD COUNT 8.5 10^3/uL (4.0-10.0)
--- NOTE | 2018-07-28 18:14 | HPE ---
DATE OF ADMISSION: 07/28/2018 A 32-year-old G2, P0-0-1-0 female at 39-2/7 weeks gestation by last menstrual period (LMP) consistent with 8-week ultrasound, estimated date of confinement (EDC) of 08/02/2018, presents for induction of labor. She denies contractions or vaginal bleeding. COURSE: Patient initiated care at 8 weeks gestation 09/25/2017. Her first trimester blood pressure was 122/68, weight 159 pounds. She had right upper quadrant pain early in and had ultrasound, which showed multiple large hemangiomas of the liver. The ultrasound was otherwise normal. She developed racing heartbeat and chest discomfort intermittently during . She was seen in the emergency room and had a negative workup. She was seen by roller coaster operator and had no treatment recommended. It was suggested to possibly consider delivery at 39 weeks gestation or induction due to racing heartbeat that she experienced. MEDICAL HISTORY: Spontaneous . SURGICAL HISTORY: 1. Tonsillectomy and adenoidectomy. 2. [place] teeth. 3. Laparoscopy. ALLERGIES: None. SOCIAL HISTORY: Patient lives in [place]. She is . She denies cigarettes, alcohol, or drug use. FAMILY HISTORY: Noncontributory. PHYSICAL EXAMINATION: Blood pressure 124/74, pulse 84. She is in No apparent distress. HEAD AND NECK: Normal. LUNGS: Clear. HEART: Regular rate and rhythm. ABDOMEN: Nontender, gravid. heart tones category 1. Cervix closed, 50%, -2. Posterior, soft, vertex. EXTREMITIES: Nontender. LABORATORY DATA: Blood type O positive, rubella immune, RPR nonreactive. Diabetes screen 99. GBS negative 07/04/2018. ASSESSMENT: A 32-year-old G2, P-0-0-1-0 female at 39-2/7 weeks gestation presents for induction of labor. PLAN: Patient is admitted on 07/28/2017. Risks of induction were discussed.
[2018-07-28] MEDS ORDERED: OXYTOCIN DRIP 30 UNITS in APPROPRIATE DILUENT 1 EA IV SCH (22:45)
[2018-07-28] MEDS: LR 1,000 ML IV SCH (23:36)
[2018-07-29] VITALS (56 sets, daily range): BP systolic 85–130; BP diastolic 50–68
[2018-07-29] MEDS ORDERED: FENTANYL 2MCG/ML ROPIVACAINE 0.2% IN 0.9% NACL 100ML IVBAG As Ordered ONE (08:27)
[2018-07-29] MEDS: LR 1,000 ML IV SCH ×5 (08:58→22:54)
[2018-07-29] MEDS: FENTANYL/ROPIVACAINE/NACL BAG 100 ML EPIDURAL SCH ×2 (10:03→18:09)
[2018-07-29] MEDS ORDERED: EPIDURAL COMMENT XX SCH (10:05)
[2018-07-29] MEDS ORDERED: EPIDURAL/PCA KEYS XX PRN (10:05)
[2018-07-29] MEDS ORDERED: REFRIGERATOR IV KEYS XX PRN (10:05)
[2018-07-29] MEDS ORDERED: LACTATED RINGER'S 1000 ML IV PRN (10:05)
[2018-07-29] MEDS ORDERED: NALOXONE INJ 0.4 MG/1 ML VIAL (J2310) IV PRN (10:05)
[2018-07-29] MEDS ORDERED: diphenhydrAMINE INJ 50MG/ML VIAL (J1200) IV PRN (10:05)
[2018-07-29] MEDS ORDERED: ONDANSETRON 4MG/2ML VIAL (J2405) IV PRN ×3 (10:05→23:00)
[2018-07-29] MEDS: ePHEDrine SULFATE 25 MG/5 ML(5MG/ML) SYRINGE IV PRN ×5 (11:28→19:00)
[2018-07-29] MEDS ORDERED: BICITRA 30ML SOLN UDC PO ONE (21:30)
[2018-07-29] MEDS ORDERED: BICITRA 30ML SOLN UDC As Ordered ONE (21:32)
[2018-07-29] MEDS ORDERED: ceFAZolin 2 GM/D5W 50 ML IV BAG (J0690 PER 500MG) As Ordered ONE (21:33)
[2018-07-29] MEDS ORDERED: SODIUM BICARBONATE 8.4% INJ 50MEQ 50 ML VIAL As Ordered ONE (22:35)
[2018-07-29] MEDS ORDERED: KETOROLAC 60 MG/2 ML VIAL (J1885) As Ordered ONE (22:35)
[2018-07-29] MEDS ORDERED: PROPOFOL 200 MG/20 ML VIAL As Ordered ONE (22:35)
[2018-07-29] MEDS ORDERED: ONDANSETRON 4MG/2ML VIAL (J2405) As Ordered ONE (22:35)
[2018-07-29] MEDS ORDERED: OXYTOCIN INJ 10 UNITS/ML VIAL (J2590) As Ordered ONE (22:35)
[2018-07-29] MEDS ORDERED: LIDOCAINE 2% W/EPIN INJ 20ML **PRES FREE As Ordered ONE (22:35)
[2018-07-29] MEDS ORDERED: ePHEDrine SULFATE 25 MG/5 ML(5MG/ML) SYRINGE As Ordered ONE (22:37)
[2018-07-29] MEDS ORDERED: MORPHINE PRES-FREE INJ 10 MG/10 ML VIAL (J2274) As Ordered ONE (22:39)
[2018-07-29] MEDS ORDERED: OXYTOCIN DRIP 30 UNITS in APPROPRIATE DILUENT 1 EA IV SCH (22:54)
[2018-07-29] MEDS ORDERED: MEASLES,MUMPS,RUBELLA VACCINE INJ (MMR-II) (90707) SC SCH (23:00)
[2018-07-29] MEDS ORDERED: RHOGAM 300 MCG (1500 IU) INJ (J2790) IM SCH (23:00)
[2018-07-29] MEDS ORDERED: LR 1,000 ML IV SCH (23:00)
[2018-07-29] MEDS ORDERED: METOCLOPRAMIDE INJ 10MG/2ML VIAL (J2765) IV PRN (23:00)
[2018-07-29] MEDS ORDERED: MEPERIDINE INJ 25 MG/ML VIAL (J2175) IV PRN (23:00)
[2018-07-29] MEDS ORDERED: DOCUSATE SODIUM 100 MG CAP PO PRN (23:00)
[2018-07-29] MEDS ORDERED: KETOROLAC 30 MG/ML VIAL (J1885) IV PRN (23:00)
[2018-07-29] MEDS ORDERED: PERCOCET 5MG/325MG TAB PO PRN ×3 (23:00)
[2018-07-29] MEDS ORDERED: fentaNYL 100 MCG/2 ML INJECTION (J3010) IV PRN (23:00)
[2018-07-29] MEDS ORDERED: NALBUPHINE HCL 10 MG/ML AMP (J2300) IV PRN (23:00)
[2018-07-30] VITALS (8 sets, daily range): BP systolic 93–111; BP diastolic 51–64
[2018-07-30 00:12] LABS: CORD GAS ABE V -4.4; CORD GAS HCO3 V 19.4 MEQ/L; CORD GAS O2 SAT V 76.2 %; CORD GAS PCO2 V 32.4 mmHg; CORD GAS PH V 7.395 UNITS; CORD GAS PO2 V 32.2 mmHg; CORD GAS SBC V 20.4 MEQ/L; CORD GAS TCO2 V 20.4 MEQ/L
[2018-07-30] MEDS: LR 1,000 ML IV SCH ×2 (04:11→12:11)
[2018-07-30] MEDS: KETOROLAC 30 MG/ML VIAL (J1885) IV SCH ×3 (05:08→17:25)
[2018-07-30 07:24] LABS: HEMATOCRIT 30.4 % (36.0-47.0); HEMOGLOBIN 9.6 g/dl (12.0-15.5); MEAN CORPUSCULAR HEMOGLOBIN 27.7 pg (27.0-33.0); MEAN CORPUSCULAR HGB CONC 31.6 g/dl (32.0-36.5); MEAN CORPUSCULAR VOLUME 87.9 fl (80.0-96.0); PLATELET COUNT, AUTOMATED 219 10^3/uL (150-450); RED BLOOD COUNT 3.46 10^6/uL (4.00-5.40); WHITE BLOOD COUNT 15.4 10^3/uL (4.0-10.0)
[2018-07-30] MEDS: PRENATAL VITAMINS CHEWABLE TABLET PO SCH (09:00)
[2018-07-30] MEDS ORDERED: PERC5TAB12 PO (10:06)
[2018-07-30] MEDS ORDERED: IBUP80TA PO (10:07)
[2018-07-30] MEDS ORDERED: SLF 3 ML SYR IV PRN (18:30)
[2018-07-30] MEDS: SLF 3 ML SYR IV SCH (21:06)
[2018-07-31] MEDS: IBUPROFEN 800 MG TAB PO SCH ×3 (00:51→16:56)
[2018-07-31] MEDS: SLF 3 ML SYR IV SCH (05:20)
[2018-07-31 05:39] VITALS: BP 100/55
--- NOTE | 2018-07-31 07:53 | RO ---
DATE OF PROCEDURE: 07/29/2018 PREOPERATIVE DIAGNOSIS: 39 weeks arrest of descent. POSTOPERATIVE DIAGNOSIS: 39 weeks arrest of descent. PROCEDURE: Primary low transverse section. SURGEON: Dr. Norris Titus MAIL DELIVERER: Dr. Ryne Mahajan ANESTHESIA: Epidural. ESTIMATED BLOOD LOSS: 700 mL. URINE OUTPUT: 50 mL. IV FLUID: 1400 mL of LR. FINDINGS: 6 pound 5 ounce male , 9 and 9. DELIVERY SUMMARY: 45 minutes second stage. OPERATING SUMMARY: The patient was diagnosed with arrest of descent. She was taken to the operating room where epidural anesthesia was adequate. She was prepped and draped in a sterile fashion in the supine position. A Trinh catheter was already in place. A Pfannenstiel skin incision was made with the scalpel and carried through to the fascia. The fascia was nicked and extended. The fascia was dissected off the rectus muscle. The rectus muscles were divided and the peritoneal cavity was entered. A bladder flap was created. A curvilinear incision was made in the lower uterine segment until clear fluid was noted. This was extended manually. The infant was delivered from the vertex position without difficulty. The cord was doubly clamped and cut. The was handed off to the awaiting nurses. The placenta was expressed. The uterus exteriorized and cleared of clots and debris. The uterine incision was closed with #0 Vicryl in a running locked fashion. A second imbricating layer of #0 Vicryl was placed. The uterus was placed back in the abdominal cavity. The peritoneum was closed with #2-0 Vicryl in a running fashion. The fascia was closed with #0 Vicryl in a running fashion. The deep subcutaneous layer was closed with #2-0 chromic. The skin was closed with #4-0 Monocryl subcuticular sutures. Sponge, instrument and needle counts were correct. Patricio Mahajan MD assisted in all aspects of the procedure from beginning to end. He assisted with creating all layers of abdomen as well as delivery of baby and repairing all layers.
[2018-07-31] MEDS: PRENATAL VITAMINS CHEWABLE TABLET PO SCH (08:26)
[2018-07-31 18:00] VITALS: BP 113/67
[2018-08-01] MEDS: IBUPROFEN 800 MG TAB PO SCH ×2 (00:32→08:47)
[2018-08-01 06:38] VITALS: BP 104/60
--- NOTE | 2018-08-01 08:27 | DSES ---
DATE OF ADMISSION: 07/28/2018 DATE OF DISCHARGE: 08/01/2018 DISCHARGE DIAGNOSIS: Arrest of descent. PROCEDURES PERFORMED IN HOSPITAL: 1. Epidural. 2. section. CONDITION ON DISCHARGE: Stable. HISTORY/HOSPITAL COURSE: This patient presented for induction of labor. Her labor progressed at which point she pushed for approximately 45 minutes with no descent. then underwent an uncomplicated section secondary to arrest of descent. This was productive of 3-cyfsq-0-ounce male infant. Estimated blood loss was 700 mL. She did well postoperatively. By postoperative day #3 had met all discharge criteria and was discharged home in stable condition. PHYSICAL EXAMINATION: On day of discharge vital signs stable. She is afebrile. General Appearance: Well appearing, no acute distress. Her abdomen is soft, appropriately tender. Fundus was firm below umbilicus. Her incision was dressed. Extremities: Negative for calf tenderness. DISCHARGE MEDICATIONS: Ibuprofen and Percocet DISCHARGE INSTRUCTIONS: 1. She is instructed to follow up in 2 weeks for incision check. 2. Remain on pelvic rest. 3. To report severe pain, heavy vaginal bleeding, fever or incisional pain. edited: 08/02/2018 0733 tkf [email or web address]
[2018-08-01] MEDS: PRENATAL VITAMINS CHEWABLE TABLET PO SCH (08:47)
[2018-08-01] MEDS ORDERED: OXYC1TAB23 PO (09:31)
[2018-08-01] MEDS ORDERED: COLA100C5 PO (09:31)
== END 2018-08-01 11:54 | disposition home or self-care (01) | DRG 773 ==
LOC: M LDI 07:27 → M OBS 07-30 01:06
PROVIDERS: ADMIT Specialist; ATTEND Specialist
PROC: 10D00Z1 Extraction of Products of Conception, Low, Open Approach (ICD-10-PCS; principal; 2018-07-29 21:53)
DX: O32.4XX0 Maternal care for high head at term, not applicable or unspecified (principal); Z37.0 Single live birth; Z3A.39 39 weeks gestation of pregnancy

== ENCOUNTER → 2020-12-07 | Outpatient (CLI) | payer OTHER ==
[~2020-12-07] MED LIST changes: +COLA100C5 PO; +IBUP80TA PO; -MECL-68 PO; +MECL1TAB31 PO; +OXYC1TAB23 PO; +PERC5TAB12 PO
[2020-12-07 17:24] LABS: FREE T3 2.8 PG/ML (2.2-4.0); FREE T4 0.8 NG/DL (0.76-1.46); THYROID STIMULATING HORMONE 6.13 uIU/ML (0.358-3.740)
== END ==
LOC: M WUC 12:09
PROVIDERS: ATTEND Family Medicine
DX: E03.9 Hypothyroidism, unspecified (principal)

== ENCOUNTER → 2021-01-28 | Outpatient (CLI) | payer OTHER ==
[2021-01-28 12:05] LABS: FREE T3 3.5 PG/ML (2.2-4.0); FREE T4 0.76 NG/DL (0.76-1.46); THYROID STIMULATING HORMONE 3.68 uIU/ML (0.358-3.740)
== END ==
LOC: M WUC 09:57
PROVIDERS: ATTEND Family Medicine
DX: E03.9 Hypothyroidism, unspecified (principal)

== ENCOUNTER → 2021-07-19 | Outpatient (CLI) | payer OTHER ==
[2021-07-19 11:10] LABS: APPEARANCE, URINE MANUAL CLEAR (CLEAR); BILIRUBIN, URINE MANUAL NEGATIVE (NEGATIVE); BLOOD URINE MANUAL NEGATIVE (NEGATIVE); COLOR, URINE MANUAL YELLOW (YELLOW); GLUCOSE, URINE (UA) MANUAL NEGATIVE (NEGATIVE); KETONE, URINE MANUAL NEGATIVE (NEGATIVE); LEUKOCYTE ESTERASE, URINE MAN NEGATIVE (NEGATIVE); NITRITE, URINE MANUAL NEGATIVE (NEGATIVE); PROTEIN, URINE MANUAL NEGATIVE (NEGATIVE); UROBILINOGEN, URINE MANUAL NORMAL (NORMAL)
[2021-07-19 11:13] LABS: HEMATOCRIT 42.8 % (36.0-47.0); HEMOGLOBIN 13.2 g/dl (12.0-15.5); MEAN CORPUSCULAR HEMOGLOBIN 25.8 pg (27.0-33.0); MEAN CORPUSCULAR HGB CONC 30.8 g/dl (32.0-36.5); MEAN CORPUSCULAR VOLUME 83.6 fl (80.0-96.0); PLATELET COUNT, AUTOMATED 417 10^3/uL (150-450); RED BLOOD COUNT 5.12 10^6/uL (4.00-5.40); WHITE BLOOD COUNT 7.3 10^3/uL (4.0-10.0)
[2021-07-19 11:55] LABS: ALBUMIN 3.5 GM/DL (3.2-5.2); ALT/SGPT 24 U/L (12-78); BILIRUBIN,TOTAL 0.3 MG/DL (0.2-1.0); BLOOD UREA NITROGEN 12 MG/DL (7-18); CARBON DIOXIDE LEVEL 30 MEQ/L (21-32); CHLORIDE LEVEL 105 MEQ/L (98-107); CREATININE FOR GFR 0.64 MG/DL (0.55-1.30); FREE T3 2.8 PG/ML (2.2-4.0); FREE T4 0.79 NG/DL (0.76-1.46); GLOMERULAR FILTRATION RATE > 60.0 (>60); GLUCOSE, FASTING 81 MG/DL (70-100); POTASSIUM SERUM 4.3 MEQ/L (3.5-5.1); SODIUM LEVEL 139 MEQ/L (136-145); TOTAL PROTEIN 7.2 GM/DL (6.4-8.2)
== END ==
LOC: M WUC 08:31
PROVIDERS: ATTEND Family Medicine
DX: R35.0 Frequency of micturition (principal); E03.9 Hypothyroidism, unspecified

== ENCOUNTER → 2021-10-20 | Outpatient (CLI) | payer OTHER ==
[~2021-10-20] MED LIST changes: +ARMO1TAB PO; +CETI-24 PO; +FLINCHW14 PO; +LORA-674 PO; +NORG1TAB4 PO
== END ==
LOC: M LABSMTC 09:35
PROVIDERS: ATTEND Anesthesiology
DX: Z20.822 Contact with and (suspected) exposure to COVID-19 (principal)

== ENCOUNTER 2021-10-25 10:45 | Day surgery (SDC) | payer OTHER ==
[~2021-10-25] VITALS: Ht 149.9 cm; Wt 82.9 kg
[2021-10-25] MEDS ORDERED: ROCURONIUM BROMIDE 50 MG/5 ML VIAL As Ordered ONE (10:54)
[2021-10-25] MEDS ORDERED: LIDOCAINE 2% 100MG/5ML SDV (FOR ANES.) As Ordered ONE (10:54)
[2021-10-25] MEDS ORDERED: propofoL 200 MG/20 ML VIAL As Ordered ONE (10:54)
[2021-10-25] MEDS ORDERED: MIDAZOLAM INJ 2MG/2ML VIAL (J2250 PER 1MG) As Ordered ONE (10:54)
[2021-10-25] MEDS ORDERED: dexameTHASONE 4 MG/ML 1ML VIAL (J1100 PER 1MG) As Ordered ONE (10:55)
[2021-10-25] MEDS ORDERED: fentaNYL 100 MCG/2 ML INJECTION As Ordered ONE ×2 (10:55→13:36)
[2021-10-25] MEDS ORDERED: ONDANSETRON 4MG/2ML VIAL As Ordered ONE ×2 (10:55→13:33)
[2021-10-25] MEDS ORDERED: LR 1,000 ML IV SCH ×2 (10:55→13:55)
[2021-10-25] MEDS ORDERED: KETOROLAC 60MG 2ML VIAL As Ordered ONE (11:33)
[2021-10-25] MEDS ORDERED: BUPIVACAINE HCL 0.25% 30ML VIAL As Ordered ONE (12:11)
[2021-10-25] MEDS ORDERED: ACETAMINOPHEN 1000MG 100ML IV BTL (OFIRMEV) (J0131 PER 10MG) As Ordered ONE (13:24)
[2021-10-25] MEDS ORDERED: SUGAMMADEX SODIUM 500 MG/5 ML VIAL (BRIDION) As Ordered ONE (13:26)
[2021-10-25] MEDS ORDERED: METOCLOPRAMIDE INJ 10MG/2ML VIAL (J2765 PER 1) As Ordered ONE (13:32)
[2021-10-25] MEDS ORDERED: MORPHINE 2 MG/ML 1ML VIAL IV PRN (13:55)
[2021-10-25] MEDS ORDERED: oxyCODONE 5MG TAB PO PRN (13:55)
[2021-10-25] MEDS ORDERED: ONDANSETRON 4MG/2ML VIAL IV PRN (13:55)
[2021-10-25] MEDS ORDERED: fentaNYL 100 MCG/2 ML INJECTION IV PRN (13:55)
[2021-10-25] MEDS ORDERED: PERCOCET 5MG/325MG TAB PO PRN (14:30)
[2021-10-25 15:40] VITALS: BP 122/89
[2021-10-25] MEDS ORDERED: KETOROLAC 30 MG/ML 1ML VIAL IV SCH (20:00)
== END 2021-10-25 15:42 | disposition home or self-care (01) ==
LOC: M SDC 10:45
PROVIDERS: ATTEND Obstetrics & Gynecology
DX: Z30.2 Encounter for sterilization (principal); J45.909 Unspecified asthma, uncomplicated; E03.9 Hypothyroidism, unspecified; F41.9 Anxiety disorder, unspecified; F32.A Depression, unspecified; Z79.51 Long term (current) use of inhaled steroids; Z79.899 Other long term (current) drug therapy; Z88.2 Allergy status to sulfonamides; Z88.8 Allergy status to other drugs, medicaments and biological substances
CPT/HCPCS: 58661; 81025; 88302; J0131; J1100; J1885; J2250; J2405; J2765; J3010